=== PATIENT | male | born 1950 | race Caucasian/White ===

== ENCOUNTER → 2019-07-06 | Day surgery (SDC) | payer MEDICARE ==
[2019-06-15 10:41] LABS: BASOPHILS % 0.4 % (0.0-1.0); EOSINOPHILS # (AUTO) 0.1 (0.0-0.4); EOSINOPHILS % 1.7 % (0.0-6.0); HEMATOCRIT 40.4 % (38.2-49.6); HEMOGLOBIN 13.8 g/dL (14.0-18.0); LYMPHOCYTES # (AUTO) 1.7 (1.0-3.2); LYMPHOCYTES % 23.7 % (18.0-39.1); MEAN CORPUSCULAR HEMOGLOBIN 31.6 pg (28-32); MEAN CORPUSCULAR HGB CONC 34.2 g/dL (31-35); MEAN CORPUSCULAR VOLUME 92.4 fL (81-99); MONOCYTES # (AUTO) 0.7 (0.2-0.8); MONOCYTES % 9.8 % (4.4-11.3); NEUTROPHILS # (AUTO) 4.7 (2.1-6.9); NEUTROPHILS % 64.1 % (38.7-80.0); PLATELET COUNT 221 x10e3/uL (140-360); RED BLOOD COUNT 4.37 x10e6/uL (4.3-5.7); RED CELL DISTRIBUTION WIDTH 13.5 % (11.7-14.4)
--- NOTE | 2019-06-15 10:55 | Diagnostic Imaging Report ---
Chest, 2 views, 06/15/2019. History: Preop. BCCA nose. Comparison: None available. Findings: The cardiomediastinal silhouette and pulmonary vasculature are within normal limits. The lungs are clear without evidence of consolidation or pleural effusion. Mild degenerative changes are noted in the thoracic spine. There are no acute osseous or soft tissue abnormalities. Impression: No acute cardiopulmonary abnormality. Signed by: Kory Meza on 06/15/2019 10:53 AM
[2019-06-15 12:45] LABS: EOSINOPHILS % (MANUAL) 2 % (0-7); LYMPHOCYTES % (MANUAL) 23 % (19-48); MONOCYTES % (MANUAL) 10 % (3.4-9.0); NEUTROPHILS % (MANUAL) 65 % (40-74)
[2019-06-15 12:46] LABS: PLATELET ESTIMATE ADEQUATE; PLATELET MORPHOLOGY COMMENT NORMAL; RBC MORPHOLOGY COMMENT NORMAL
[~2019-07-06] MED LIST: ACETAMINOPHEN/CODEINE 300MG - 30MG TAB ONE; AMLODIPINE BESYL5 MG PO; CEFAZOLIN SOD 1 GM/NS 50ML 50 ML IV ONE; DESFLURANE 240 ML BTL INH ONE; DEXAMETHASONE SOD PHOS INJ 4 MG/ML VIAL ONE; FENTANYL CITRATE/PF 100MCG/2 ML INJ ONE; GLYCOPYRROLATE INJ 0.2 MG/ML VIAL ONE; LIDOCAINE 1% W/EPINEPHRINE 20 ML VIAL ONE; LIDOCAINE HCL 2% LOCAL INJ 5 ML SDV VIAL INJ ONE; LISINOPRIL10 MG PO; MIDAZOLAM HCL 2 MG/2 ML VIAL ONE; MUPIROCIN 2% OINT 22 GM TUBE ONE; NEOSTIGMINE 1 MG/ML 10ML VIAL ONE; ONDANSETRON HCL INJ 2MG/ML 2ML 2 MG/ML VIAL ONE; PHENYLEPHRINE HCL 1% 10 MG/ML VIAL ONE; PROPOFOL IV EMULSION 10 MG/ML 20 ML VIAL ONE; SUCCINYLCHOLINE CHLORIDE 20 MG/ML 10ML VIAL ONE
--- OUTSIDE RECORDS SUMMARY | 2019-07-06 05:41 | XMS REPORT ---
Author Author [facility] Address Unknown Phone Unavailable Care Team Providers Care Receiving Teller Name Role Phone LUCA ISAAC Unavailable Unavailable Problems This patient has no known problems. Allergies, Adverse Reactions, Alerts This patient has no known allergies or adverse reactions. Medications This patient has no known medications. Encounters Start Date/Time End Date/Time Encounter Type Admission Type Attending [facility] Care Department Encounter ID 2018-12-05 06:41:00 2018-12-05 06:41:00 Emergency E [facility]SE [id number] 2018-11-15 14:13:00 2018-11-15 14:13:00 Emergency E [facility]BL [id number] Results Test Description Test Time Test Comments Text Results Atomic Results Result Comments CHEST 2 VIEWS 2019-06-15 10:52:00 [place] [address] Patient Name: BRANDAN MARSH MR #: [id number] : 1950 Age/Sex: 68/M Req #: [id number] Adm Physician: Ordered by: LUCA ISAAC MD Report #: [id number] Location: OR Room/Bed: Procedure: [id number] DX/CHEST 2 VIEWS Exam Date: 06/15/19 Exam Time: 1030 REPORT STATUS: Signed Chest, 2 views, 06/15/2019. History: Preop. BCCA nose. Comparison: None available. Findings: The cardiomediastinal silhouette and pulmonary vasculature are within normal limits. The lungs are clear without evidence of consolidation or pleural effusion. Mild degenerative changes are noted in the thoracic spine. There are no acute osseous or soft tissue abnormalities. Impression: No acute cardiopulmonary abnormality. Signed by: Ana Meza on 06/15/2019 10:53 AM Dictated By: ANA MEZA MD 1053 Transcribed By: BRYN on 06/15/19 1052 COPY TO: LUCA ISAAC MD
[2019-07-06 09:05] VITALS: BP 124/75
--- NOTE | 2019-07-06 11:59 | Operative Report ---
DATE OF PROCEDURE: 07/06/2019 SURGEON: Alvin Romero MD PREOPERATIVE DIAGNOSIS: Basal cell carcinoma, left ala. POSTOPERATIVE DIAGNOSIS: Status post Mohs micrographic surgery defect left ala 4 cm2. PROCEDURES: 1. Debridement of skin and subcutaneous tissues sharp excisional. 2. Nasolabial pedicle flap closure of 15 cm2. ANESTHESIA: General. HISTORY: The patient is a 68-year-old male, who underwent Mohs micrographic surgery yesterday for a basal cell involving the left ala. The defect is comprised of full-thickness skin, subcutaneous tissue, and ala cartilage. The only remaining tissue at the base of the wound is the lining of the left nostril. The defect measures approximately 2 cm long by 2 cm wide. A preoperative consultation with the patient was done and a nasolabial flap closure was planned. The nasolabial flap will be pedicled from the cheek when brought over. The patient is aware of the risks, benefits, and alternatives to treatment and was prepared to undergo the procedure as outlined. PROCEDURE IN DETAIL: The patient was marked preoperatively in the holding area and was brought to the operating theater. After the induction of adequate general anesthesia, he was prepped and draped in a supine position and a time-out was performed. The procedure was begun by first marking out the proposed nasolabial flap. It was 2 cm wide in order to allow adequate closure of the left ala without compromising the airway. The pedicle length was 6.5 to 7 cm in length along the left nasolabial fold. The soft tissues were then infiltrated with 1% Xylocaine with epinephrine and the incisions were then made through the skin and subcutaneous tissue. Bleeding was controlled using the electrocautery. The flap was then elevated in the deep subcutaneous plane and then the left cheek was undermined for several centimeters in order to allow it to advance medially to close the donor site without tension. At this point, the Mohs defect has excision of the edges of all the irregular and devitalized tissue. Care was taken to ensure that the lining of the nostril remains intact. Once again, hemostasis was made absolute using electrocautery. The left cheek was then advanced medially and the donor site was then closed utilizing 5-0 nylon in an interrupted horizontal mattress fashion. This was performed first to take all the tension off the pedicle. At this point, once the nasolabial region has been closed, the pedicle was then placed onto the defect. It was defatted in its distal third in order to give it a good contour, however, the de-fatting was done judiciously as to not compromise the blood supply to the pedicle. The length of the pedicle was then determined by the length needed to reach the edge of the ala rim and then the pedicle was then trimmed. The pedicle was then inset using 5-0 nylon in an interrupted horizontal mattress fashion. At the completion of the procedure, the pedicle was noted to be well vascularized. There was no tension or tenting of the alar rim and the incisions were noted to be hemostatic. The flap dimensions as mentioned previously are approximately 6.5 to 7 cm long by 3 to 4 cm wide. For a total of 20 cm2. Bactroban ointment and Xeroform gauze were applied to the incisions. A sterile dressing was applied and held in place with tape. The estimated blood loss of procedure was between 5 and 10 mL. The patient tolerated the procedure well and was brought to recovery room in satisfactory condition and discharged with a postoperative instruction sheet as well as a followup appointment. MD BOO Walker/IRIS /[id number]
== END | disposition home or self-care (01) ==
LOC: OR 05:29
PROVIDERS: ATTEND Plastic Surgery
DX: Z48.3 Aftercare following surgery for neoplasm (principal); Z85.828 Personal history of other malignant neoplasm of skin; I10 Essential (primary) hypertension; Z01.810 Encounter for preprocedural cardiovascular examination; Z01.812 Encounter for preprocedural laboratory examination; Z01.818 Encounter for other preprocedural examination; Z87.891 Personal history of nicotine dependence
CPT/HCPCS: 14061; 36415; 71046; 85025; 93005; J0330; J0690; J1100; J2001; J2250; J2370; J2405; J2704; J2710; J3010